=== PATIENT | male | born 1975 ===

== ENCOUNTER 2017-03-23 14:13 | Outpatient (CLI) | payer OTHER ==
--- NOTE | 2017-03-24 14:29 | MRI Report ---
EXAM: RIGHT HUMERUS MRI WITHOUT CONTRST EXAM DATE: 03/23/2017 03:26 PM. CLINICAL HISTORY: Biceps muscle/tendon strain. COMPARISON: None. TECHNIQUE: Multiplanar, multisequence T1-weighted and fluid-sensitive sequences of the mid to distal humerus/upper arm and elbow without contrast. Other: None. FINDINGS: Bones: No fractures or subluxations. No marrow edema. No bone lesions. Joint Spaces: Visualized portions of the shoulder and elbow joints are unremarkable. Tendons and musculature: There is tendinosis/strain at the distal aspect of the biceps tendon. Small amount of fluid along the distal aspect of the biceps tendon. No tendon retraction. Small amount of e tony at the distal biceps muscle-tendon unit. The brachialis, triceps, common flexor, and common exte nsor tendons are intact. Ligaments: The radial collateral, lateral ulnar collateral, ulnar collateral, and annular ligaments a re intact. Other: The subcutaneous tissues are unremarkable. IMPRESSION: 1. Tendinosis/strain at the distal aspect of the biceps brachii tendon. Small amount of fluid along t he distal aspect of the biceps tendon. No tendon retraction. [facility] MUSCULOSKE[facility] RADIOLOG[facility] SECTION Referring Provider Line: [phone] SITE ID: [id number]
== END 2017-03-23 14:14 | disposition home or self-care (01) ==
LOC: DI 14:13
PROVIDERS: ATTEND Physician Assistant
DX: S46.211A Strain of muscle, fascia and tendon of other parts of biceps, right arm, initial encounter (principal)